=== PATIENT | female | born 1950 | race Caucasian/White ===

== ENCOUNTER 2020-06-28 11:54 | Emergency (ER) | payer OTHER, MEDICAID ==
[~2020-06-28] VITALS: Ht 160 cm; Wt 74.8 kg
[2020-06-28 12:05] VITALS: BP 147/63
[2020-06-28] MEDS ORDERED: ALPR0.5T2 PO (13:55)
[2020-06-28 14:04] VITALS: BP 147/63
== END 2020-06-28 14:05 | disposition home or self-care (01) ==
LOC: MED 11:54
DX: E71.19 Other disorders of branched-chain amino-acid metabolism (principal); E11.9 Type 2 diabetes mellitus without complications; I10 Essential (primary) hypertension; Z88.2 Allergy status to sulfonamides
CPT/HCPCS: 71045; 99284